=== PATIENT | male | born 1960 | race Caucasian/White ===

== ENCOUNTER 2018-01-20 16:14 | Inpatient (IN) | payer MEDICAID ==
--- NOTE | 2018-01-20 18:00 | ED Physician Chart ---
ED Chief Complaint/HPI - Patient Information Date Seen:: 01/20/18 Time Seen:: 17:08 Chief Complaint:: left leg and foot pain History of Present Illness:: THIS IS A 57 YO MALE WHO IS CONCERNED ABOUT HIS LEFT LOWER LEG AND FOOT PAIN. HE HAS HAD A PE AND A DVT IN THE LEFT LOWER LEG. THE PATIENT DENIES HEART PAIN BUT DENIES ABDOMINAL PAIN. HE HAS HAD BACK PAIN ALSO FOR SEVERAL DAYS. Allergies:: Allergies Allergy/AdvReac Type Severity Reaction Status Date / Time No Known Allergies Allergy Verified 01/20/18 16:57 Vitals:: Vital Signs - 8 hr 01/20/18 16:58 Temp 98.6 F HR 63 RR 16 BP 161/90 O2 Sat % 99 ED Review of Systems - Review of Systems General/Constitutional: No fever, No chills, No weight loss, No weakness, No diaphoresis, No edema, No loss of appetite Skin: No skin lesions, No rash, No bruising Head: No headache, No light-headedness Eyes: No loss of vision, No pain, No diplopia ENT: No earache, No nasal drainage, No sore throat, No tinnitus Neck: No neck pain, No swelling, No thyromegaly, No stiffness, No mass noted Cardio Vascular: No chest pain, No palpitations, No PND, No orthopnea, No edema Pulmonary: No SOB, No cough, No sputum, No wheezing GI: No nausea, No vomiting, No diarrhea, No pain, No melena, No hematochezia, No constipation, No hematemesis G/U: No dysuria, No frequency, No hematuria Musculoskeletal: No bone or joint pain, No back pain, No muscle pain, Other ( left lower leg swelling but not tender.) Endocrine: No polyuria, No polydipsia Psychiatric: No prior psych history, No depression, No anxiety, No suicidal ideation Hematopoietic: No bruising, No lymphadenopathy Allergic/Immuno: No urticaria, No angioedema Neurological: No syncope, No focal symptoms, No weakness, No paresthesia, No headache, No seizure, No dizziness, No confusion, No vertigo ED Past Medical History - Past Medical History Obtainable: Yes Past Medical History: HTN, DM, DVT/PE Family History: Diabetes Melitus (father) Social History: Non Smoker, No Alcohol, No Drug Use, Single Family Medical History - Family Member Mother History Unknown: Yes ED Physical Exam - Physical Examination General/Constitutional: Awake, Well-developed, well-nourished, Alert, No distress, GCS 15, Non-toxic appearing, Ambulatory Head: Atraumatic Eyes: Lids, conjuctiva normal, PERRL, EOMI Skin: Nl inspection, No rash, No skin lesions, No ecchymosis, Well hydrated, No lymphadenopathy ENMT: External ears, nose nl, Nasal exam nl, Lips, teeth, gums nl Neck: Nontender, Full ROM w/o pain, No JVD, No nuchal rigidity, No bruit, No mass, No stridor Respiratory: Nl effort/Exclusion, Clear to Auscultation, No Wheeze/Rhonchi/Rales Cardio Vascular: RRR, No murmur, gallop, rubs, NL S1 S2 GI: No tenderness/rebounding/guarding, No organomegaly, No hernia, Normal BS's, Nondistended, No mass/bruits, No McBurney tenderness : No CVA tenderness Extremities: No tenderness or effusion (left lower extremity), Full ROM, normal strength in all extremities, No edema, Normal digits & nails Neuro/Psych: Alert/oriented, DTR's symmetric, Normal sensory exam, Normal motor strength, Judgement/insight normal, Mood normal, Normal gait, No focal deficits Misc: Normal back, No paraspinal tenderness ED Labs/Radiology/EKG Results - Lab Results Results: Laboratory Results - last 24 hr 01/20/18 01/20/18 01/20/18 18:15 18:15 18:15 WBC RBC Hgb Hct MCV MCH MCHC Differential RDW Plt Count MPV Neutrophils % Lymphocytes % Monocytes % Eosinophils % Basophils % PT 11.3 INR 1.09 PTT (Actin FS) 23.8 L Sodium Potassium Chloride Carbon Dioxide Anion Gap BUN Creatinine Est GFR ( Amer) Est GFR (Non-Af Amer) BUN/Creatinine Ratio Glucose Calcium Total Bilirubin AST ALT Alkaline Phosphatase Troponin I < 0.01 L Total Protein Albumin Globulin Albumin/Globulin Ratio TSH 0.49 01/20/18 01/20/18 18:15 18:15 WBC 5.5 RBC 4.63 Hgb 14.6 Hct 43.3 MCV 93.5 MCH 31.5 H MCHC Differential 33.7 RDW 13.2 Plt Count 276 MPV 6.7 Neutrophils % 56.8 Lymphocytes % 31.6 Monocytes % 8.8 Eosinophils % 2.3 Basophils % 0.5 PT INR PTT (Actin FS) Sodium 137 Potassium 3.3 L Chloride 99 Carbon Dioxide 29.3 Anion Gap 12.0 BUN 15 Creatinine 0.8 Est GFR ( Amer) > 60.0 Est GFR (Non-Af Amer) > 60.0 BUN/Creatinine Ratio 18.8 Glucose 176 H Calcium 9.9 Total Bilirubin 0.5 AST 22 ALT 35 Alkaline Phosphatase 70 Troponin I Total Protein 7.2 Albumin 4.0 L Globulin 3.2 Albumin/Globulin Ratio 1.3 TSH - Radiology Results Results: CHEST X-RAY = NAD Comments:: CTA OF THE CHEST = NEGATIVE FOR PE = OLD RIGHT RIB FX = OLD RIGHT RIB FX - EKG Interpretations EKG Time:: 17:59 Rate & Rhythm: rate = 54, sinus ian [place]: left axis ED Assessment - Assessment General Assessment: LEFT DEEP VEIN THROMBOSIS ED Septic Shock - . Is Septic Shock (SBP<90, OR Lactate>4 mmol\L) present?: No - <6hrs of presentation: Vital Signs: Vital Signs - 8 hr 01/20/18 16:58 Temp 98.6 F HR 63 RR 16 BP 161/90 O2 Sat % 99 ED Reassessment (Disposition) - Reassessment Reassessment Condition:: Unchanged - Diagnosis Diagnosis:: LEFT LOWER LEG DEEP VEIN THROMBOSIS DIABETES MELLITUS HYPERTENSION - Patient Disposition Discharge/Transfer:: Acute Care w/in this hosp Admitting Medical Physician:: Luz Maria Patel Condition at Disposition:: Unchanged
[2018-01-20] MEDS ORDERED: Sodium Chloride 0.45% 1,000 ML IV ONE (18:03)
[2018-01-20 18:22] LABS: % BASOPHILS 0.5 % (0.0-2.0); % EOSINOPHILS 2.3 % (0.0-5.0); % LYMPHOCYTES 31.6 % (20.0-50.0); % MONOCYTES 8.8 % (2.0-10.0); % NEUTROPHILS 56.8 % (40.0-80.0); EOSINOPHILE ABSOLUTE 0.1 Th/cmm (0.1-0.4); HEMATOCRIT 43.3 % (41.0-60); HEMOGLOBIN 14.6 gm/dL (12-16); LYMPHOCYTE ABSOLUTE 1.7 Th/cmm (1.5-3.0); MEAN CELL VOLUME 93.5 fl (80-99); MEAN CORPUSCULAR HEMOGLOBIN 31.5 pg (26.0-30.0); MEAN CORPUSCULAR HGB CONC 33.7 pg (28.0-36.0); MEAN PLATELET VOLUME 6.7 fl; MONOCYTE ABSOLUTE 0.5 Th/cmm (0.3-1.0); NEUTROPHILE ABSOLUTE 3.2 Th/cmm (1.8-8.0); PLATELET COUNT 276 Th/cmm (150-400); RED BLOOD COUNT 4.63 Mil/cmm (4.30-5.70); RED CELL DISTRIBUTION WIDTH 13.2 % (11.5-20.0); WHITE BLOOD COUNT 5.5 Th/cmm (4.8-10.8)
[2018-01-20 18:34] LABS: INR 1.09 (0.5-1.4); PROTHROMBIN TIME (TEST) 11.3 SECONDS (9.5-11.5)
[2018-01-20 18:38] LABS: ALB/GLOB RATIO 1.3 (1.0-1.8); ALKALINE PHOSPHATASE 70 U/L (34-104); BILIRUBIN,TOTAL 0.5 mg/dL (0.3-1.0); BUN - UREA NITROGEN 15 mg/dL (7-25); CALCIUM SERUM 9.9 mg/dL (8.6-10.3); CARBON DIOXIDE 29.3 mEq/L (21.0-31.0); CHLORIDE 99 mEq/L (98-107); CREATININE - SERUM 0.8 mg/dL (0.7-1.3); GFR AFRICAN-AMERICAN > 60.0 ml/min (>90); GFR NON AFRICAN-AMERICAN > 60.0 ml/min; GLUCOSE 176 mg/dL (70-105); POTASSIUM SERUM 3.3 mEq/L (3.5-5.1); SGOT 22 U/L (13-39); SGPT/ALT 35 U/L (7-52); SODIUM SERUM 137 mEq/L (136-145); TOTAL PROTEIN,SERUM 7.2 gm/dL (6.0-8.3)
[2018-01-20] MEDS ORDERED: Potassium Chloride Elixir 20 mEq /15 mL UDC PO ONE (18:45)
[2018-01-20] MEDS ORDERED: Potassium Chloride Elixir 20 mEq /15 mL UDC ONE (18:53)
[2018-01-20] MEDS ORDERED: IOHEXOL 350mgI/mL 150mL IV ONE (19:53)
[2018-01-20 23:40] VITALS: BP 107/58
[2018-01-21 00:52] LABS: URINE SOURCE CLEAN C
[2018-01-21 00:57] LABS: URINE BILIRUBIN NEGATIVE (NEGATIVE); URINE BLOOD NEGATIVE (NEGATIVE); URINE GLUCOSE (UA) NEGATIVE (NEGATIVE); URINE KETONE NEGATIVE (NEGATIVE); URINE LEUKOCYTE ESTERASE NEGATIVE (NEGATIVE); URINE NITRATE NEGATIVE (NEGATIVE); URINE PH 6.5 (4.6 - 8.0); URINE PROTEIN NEGATIVE (NEGATIVE)
[2018-01-21 01:07] LABS: URINE CLARITY CLEAR (CLEAR); URINE COLOR YELLOW; URINE MICROSCOPIC INDICATED? NO
[2018-01-21 06:08] LABS: % BASOPHILS 0.5 % (0.0-2.0); % EOSINOPHILS 2.4 % (0.0-5.0); % LYMPHOCYTES 34.4 % (20.0-50.0); % MONOCYTES 7.6 % (2.0-10.0); % NEUTROPHILS 55.1 % (40.0-80.0); EOSINOPHILE ABSOLUTE 0.1 Th/cmm (0.1-0.4); HEMOGLOBIN 14.2 gm/dL (12-16); MEAN CELL VOLUME 95.5 fl (80-99); MEAN CORPUSCULAR HEMOGLOBIN 30.7 pg (26.0-30.0); MEAN CORPUSCULAR HGB CONC 32.2 pg (28.0-36.0); MEAN PLATELET VOLUME 7.1 fl; MONOCYTE ABSOLUTE 0.4 Th/cmm (0.3-1.0); NEUTROPHILE ABSOLUTE 3.3 Th/cmm (1.8-8.0); PLATELET COUNT 225 Th/cmm (150-400); RED CELL DISTRIBUTION WIDTH 12.5 % (11.5-20.0); WHITE BLOOD COUNT 5.8 Th/cmm (4.8-10.8)
[2018-01-21 06:27] LABS: ALB/GLOB RATIO 1.2 (1.0-1.8); ALBUMIN 3.6 gm/dL (4.2-5.5); ALKALINE PHOSPHATASE 70 U/L (34-104); ANION GAP 11.8 (7.0-16.0); BILIRUBIN,TOTAL 0.4 mg/dL (0.3-1.0); BUN - UREA NITROGEN 12 mg/dL (7-25); CALCIUM SERUM 9.4 mg/dL (8.6-10.3); CARBON DIOXIDE 26.5 mEq/L (21.0-31.0); CHLORIDE 102 mEq/L (98-107); CHOLESTEROL 150 mg/dL (<200); CREATININE - SERUM 0.8 mg/dL (0.7-1.3); GFR AFRICAN-AMERICAN > 60.0 ml/min (>90); GFR NON AFRICAN-AMERICAN > 60.0 ml/min; GLUCOSE 211 mg/dL (70-105); HDL -HIGH DENSITY LIPOPROTEIN 39 mg/dL (23-92); MAGNESIUM 1.7 mg/dL (1.9-2.7); POTASSIUM SERUM 3.3 mEq/L (3.5-5.1); SGOT 22 U/L (13-39); SGPT/ALT 33 U/L (7-52); SODIUM SERUM 137 mEq/L (136-145); TOTAL PROTEIN,SERUM 6.7 gm/dL (6.0-8.3); TRIGLYCERIDES 115 mg/dL (<150)
[2018-01-21] MEDS: INSULIN ASPART SLIDING SCALE 100 UNITS/ML UNIT SUBQ SCH ×4 (08:07→21:02)
--- NOTE | 2018-01-21 10:02 | Diagnostic Imaging Report ---
CHEST X-RAY: AP view INDICATION: pain COMPARISON: None FINDINGS: Mild chronic lung changes are noted. There is no focal consolidation or pleural effusions The heart is normal in size. No pneumothorax. Multiple old right rib fractures are noted.. IMPRESSION: No focal consolidation or evidence of pneumothorax. Multiple old right rib fractures.
--- NOTE | 2018-01-21 10:05 | Diagnostic Imaging Report ---
Bilateral lower extremity DVT study HISTORY: Left leg pain, rule out DVT COMPARISON: None Technique: Longitudinal and transverse sonographic images of the bilateral lower extremity veins were obtained with doppler analysis. FINDINGS: There is thrombus seen within the left popliteal vein. The remaining veins of the bilateral lower extremity are patent demonstrate compressibility and augmentation with no evidence of DVT formation. IMPRESSION: Findings consistent with DVT within the left popliteal vein. Clinical correlation follow-up is recommended. Results were relayed to the referring team following the exam.
--- NOTE | 2018-01-21 10:49 | Diagnostic Imaging Report ---
CT Chest pulmonary embolus study Indication: Shortness of breath Comparison: Chest x-ray the same day, Technique: Axial images were obtained from the base of the neck to the upper abdomen, following administration of IV contrast, PE protocol. Multiplanar reconstructions were made. total DLP: 323, CTDI7.9 FINDINGS: There is no evidence of mediastinal lymphadenopathy. No evidence of an aortic aneurysm. The heart size is normal. No pericardial effusion identified. Minimal atherosclerotic vascular disease is noted. Evaluation of the pulmonary arterial vasculature demonstrates no evidence of pulmonary embolus. Evaluation of the pulmonary parenchyma demonstrates hypoventilatory and atelectatic lung changes. No focal consolidation, pleural effusions, or pneumothorax. There are multiple old right rib fractures. Degenerative changes of the spine are noted. Multiple gallstones are suspected. IMPRESSION: No evidence of pulmonary embolus. No evidence of an aortic aneurysm Atelectatic lung changes with no focal consolidation identified. Multiple old right rib fractures. Suspect multiple small gallstones. Ultrasound would further clarify.
[2018-01-21] MEDS ORDERED: Mag Sulfate 2gm/50mL Premix 2 GM/50 ML BAG IV ONE (14:07)
--- NOTE | 2018-01-21 16:12 | History & Physical ---
ADMIT DATE: 01/21/2018 CHIEF COMPLAINT: The patient came in because of purplish discoloration of his foot. HISTORY OF PRESENT ILLNESS: This is a 57-year-old male with past medical history of left leg DVT, who came in because of purplish discoloration of left foot. A few hours prior to admission, the patient noted purplish discoloration of lateral left foot. He was concerned about recurrent DVT, which he had about 9 years ago. He then proceeded to the Emergency Room. Left leg duplex scan was positive for DVT involving the left popliteal vein. This was followed by a CTA of the chest, which was negative for PE. He was started on Xarelto. He had no edema or trauma to the area. PAST MEDICAL HISTORY: 1. Type 2 diabetes mellitus. 2. Essential hypertension. CURRENT MEDICATIONS: He is currently on metformin, atenolol, glipizide, hydrochlorothiazide, amlodipine, Xarelto. ALLERGIES: No known drug allergies. SOCIAL HISTORY: He still smokes approximately a pack which he consumes in about 3 days. No alcohol abuse. He is unemployed. FAMILY HISTORY: Father had a history of diabetes while mother had a history of leukemia. REVIEW OF SYSTEMS: CONSTITUTIONAL: Denied any weakness, appetite had been fair, no fever or chills. HEENT: No mention of headaches, no dizziness. CARDIORESPIRATORY: No shortness of breath, chest pain, palpitations, diaphoresis, or cough. GASTROINTESTINAL: No nausea and vomiting, abdominal pain or cramping, hematemesis, melena, hematochezia, no diarrhea. ENDOCRINE: He has a history of diabetes, no thyroid abnormalities, no dyslipidemia. MUSCULOSKELETAL: Multiple joint arthralgias. GENITOURINARY: No history of kidney failure, no dysuria, no hematuria. HEMATOLOGIC: No history of anemia. NEUROPSYCHIATRIC: No syncopal episode or seizure activity. PHYSICAL EXAMINATION: GENERAL: The patient is alert, verbal, comfortable. VITAL SIGNS: Blood pressure is 114/52, pulse 56, temperature 97.4 degrees. SKIN: Good turgor, warm, no rash, no jaundice appreciated. HEENT: Head normocephalic, atraumatic. Eyes: Extraocular muscles are intact. Pupils equal, round, reactive to light and accommodates. Anicteric sclerae. [place] conjunctivae. Nose, midline nasal septum. Mouth, moist mucosa, adequate dentition. NECK: Supple, no adenopathy, no thyromegaly, no bruits. Trachea palpated in the midline. CHEST AND CARDIOVASCULAR: S1, S2. No rub, murmur, no gallop appreciated. Point of maximal impulse fifth intercostal space, left midclavicular line. No abdominal or femoral bruits appreciated. LUNGS: Equal expansion. No use of accessory muscles. No supraclavicular retractions. Decreased breath sounds, clear to auscultation without any wheeze. ABDOMEN: Flat, soft. Positive for bowel sounds. No bruits either diastolic or systolic. RECTAL: Refused. GENITOURINARY: Also refused. MUSCULOSKELETAL: No effusions present in his joints with adequate range of motion. EXTREMITIES: No evidence of any edema, cyanosis or clubbing. He has no tenderness on palpation of bilateral lower extremities. He has some purplish discoloration involving the lateral aspect of his left foot. He has a palpable femoral, popliteal and dorsalis pedis pulses. NEUROLOGIC: The patient is alert, verbal, motor is 5/5. Cranial nerves 3-12 intact. Sensory intact. LABORATORY DATA AND STUDIES: Did reveal white count 5.8, hemoglobin 14.2, hematocrit 44, platelets 225, polys 55.1%. Sodium 137, potassium 3.3, chloride 102, bicarbonate 26, BUN 12, creatinine 0.8, glucose 211, calcium 9.4, magnesium 1.7. Albumin 3.6. TSH 1. IMPRESSION: 1. Recurrent left leg deep venous thrombosis, possibly due to smoking. 2. Type 2 diabetes mellitus. 3. Essential hypertension. 4. Hypokalemia secondary to hypomagnesemia as well as hydrochlorothiazide. 5. Hypomagnesemia secondary to hydrochlorothiazide. PLAN: 1. Start Xarelto twice a day. 2. Continue to monitor the patient's respiratory status. 3. Encourage the patient to ambulate. 4. Encourage the patient also to stop smoking or taper down his cigarettes. JOB# [id number]
[2018-01-22 05:29] LABS: ANION GAP 11.7 (7.0-16.0); BUN - UREA NITROGEN 16 mg/dL (7-25); CALCIUM SERUM 9.7 mg/dL (8.6-10.3); CARBON DIOXIDE 29.8 mEq/L (21.0-31.0); CHLORIDE 100 mEq/L (98-107); CREATININE - SERUM 0.8 mg/dL (0.7-1.3); GFR AFRICAN-AMERICAN > 60.0 ml/min (>90); GFR NON AFRICAN-AMERICAN > 60.0 ml/min; GLUCOSE 222 mg/dL (70-105); MAGNESIUM 1.9 mg/dL (1.9-2.7); POTASSIUM SERUM 3.5 mEq/L (3.5-5.1); SODIUM SERUM 138 mEq/L (136-145)
[2018-01-22] MEDS: INSULIN ASPART SLIDING SCALE 100 UNITS/ML UNIT SUBQ SCH ×2 (09:16→12:14)
--- NOTE | 2018-01-22 23:03 | Discharge Summary ---
DATE OF DISCHARGE: 01/21/2018 ADMITTING DIAGNOSES: 1. Recurrent left lower extremity DVT. 2. Previous history of deep venous thrombosis with PE (2 years ago). 3. Mild hypokalemia. SECONDARY DIAGNOSES: 1. History of type 2 diabetes. 2. History of essential hypertension. 3. History of nicotine dependence. DISCHARGE DIAGNOSES: 1. Left lower extremity DVT -- clinically stable. 2. Hypokalemia, repleted. CONSULTANTS: No consultants were used during this admission. MAJOR PROCEDURES: Chest, abdomen, and pelvic CT angiogram: No evidence of PE, no evidence of aortic aneurysm. Atelectatic lung changes with no focal consolidation was noted, multiple old rib fractures. Suspected multiple small gallstones. Lower extremity venous ultrasound: Findings consistent with DVT in the left popliteal vein. BRIEF HOSPITAL COURSE: The patient is a 57-year-old gentleman with the above-mentioned past medical history who presented to the ER with a few day history of left lower extremity discoloration and pain. The patient stated that he had a trip to [place] about 2 weeks prior to admission, and he thinks that it was after that he started to develop the pain and some swelling. He stated that he had a DVT diagnosed as well as a PE about 2 years ago and was treated with Coumadin for a few months. The patient was admitted to the [facility] and was placed on Xarelto and supportive care including pain management and he was kept on his other medications. By the hospital day #2, his pain and swelling had improved and he remained asymptomatic with normal vital signs. CONDITION ON DISCHARGE: Stable. MEDICATIONS ON DISCHARGE: Xarelto 15 mg b.i.d. with meals, amlodipine 10 mg every day, atenolol 25 every day, glipizide 5 daily with meals, hydrochlorothiazide 12.5 every day, Glucophage 1000 mg in the morning and 500 mg at night. CONDITION ON DISCHARGE: Stable. DISPOSITION: The patient was discharged home and was instructed to follow up with his primary care doctor within 2 or 3 days. I also instructed him in the future when taking long trips given that he is susceptible for DVTs to frequently stretch and move his lower extremities. JOB# [id number] [facility]
== END 2018-01-22 14:00 | disposition home or self-care (01) | DRG 197 ==
LOC: ER 16:14 → TELE 22:02
PROVIDERS: ADMIT Internal Medicine; ATTEND Internal Medicine
DX: I82.432 Acute embolism and thrombosis of left popliteal vein (principal); E11.65 Type 2 diabetes mellitus with hyperglycemia; K80.10 Calculus of gallbladder with chronic cholecystitis without obstruction; E83.42 Hypomagnesemia; I10 Essential (primary) hypertension; F17.210 Nicotine dependence, cigarettes, uncomplicated; E87.6 Hypokalemia; Z86.711 Personal history of pulmonary embolism; Z86.718 Personal history of other venous thrombosis and embolism; Z83.3 Family history of diabetes mellitus; Z88.3 Allergy status to other anti-infective agents
CPT/HCPCS: 36415-UA; 71045-TC; 71275-TC; 80048-TC; 80053-TC; 80061-TC; 81003-TC; 82948-90; 83036-90; 83735-TC; 84443-TC; 84484-TC; 85025-TC; 85610-TC; 85730-TC; 93005; 93970-TC-50; J1815; J3475; J7040; Z7610

== ENCOUNTER 2018-05-29 17:25 | Emergency (ER) | payer MEDICAID ==
--- NOTE | 2018-05-29 17:55 | ED Physician Chart ---
ED Chief Complaint/HPI - Patient Information Date Seen:: 05/29/18 Time Seen:: 17:45 Chief Complaint:: Penile Discharge History of Present Illness:: onset x 2 days of penile redness and discharge; pt denies trauma, pain, LOC, ALOC, AMS, H/As, neck pain, C/P, SOB, Abd. Pain, A/N/V/D/C, fever, chills, bleeding, or urinary s/s; pt's last tetanus shot: < 5 years; UTD; pt is eating and is urinating well; pt last urinated 1/2 hour [employer] Allergies:: Allergies Allergy/AdvReac Type Severity Reaction Status Date / Time No Known Allergies Allergy Verified 01/20/18 16:57 Historian:: Patient Review:: Nurse's Note Reviewed ED Review of Systems - Review of Systems General/Constitutional: No fever, No chills, No weight loss, No weakness, No diaphoresis, No edema, No loss of appetite Skin: No skin lesions, No rash, No bruising Head: No headache, No light-headedness Eyes: No loss of vision, No pain, No diplopia ENT: No earache, No nasal drainage, No sore throat, No tinnitus Neck: No neck pain, No swelling, No thyromegaly, No stiffness, No mass noted Cardio Vascular: No chest pain, No palpitations, No PND, No orthopnea, No edema Pulmonary: No SOB, No cough, No sputum, No wheezing GI: No nausea, No vomiting, No diarrhea, No pain, No melena, No hematochezia, No constipation, No hematemesis G/U: No dysuria, No frequency, No hematuria, No nacturia Musculoskeletal: No bone or joint pain, No back pain, No muscle pain Endocrine: No polyuria, No polydipsia Psychiatric: No prior psych history, No depression, No anxiety, No suicidal ideation, No homicidal ideation, No auditory hallucination, No visual hallucination Hematopoietic: No bruising, No lymphadenopathy Allergic/Immuno: No urticaria, No angioedema Neurological: No syncope, No focal symptoms, No weakness, No paresthesia, No headache, No seizure, No dizziness, No confusion, No vertigo ED Past Medical History - Past Medical History Obtainable: Yes Past Medical History: HTN, DM, DVT/PE, Other (Hepatitic C) Family History: HTN Social History: Non Smoker, No Alcohol, No Drug Use, Surgical History: None Psychiatricy History: None Medication: Reviewed Family Medical History - Family Member Mother History Unknown: Yes Hx Family Diabetes: Yes ED Physical Exam - Physical Examination General/Constitutional: Awake, Well-developed, well-nourished, Alert, No distress, GCS 15, Non-toxic appearing, Ambulatory Head: Atraumatic Eyes: Lids, conjuctiva normal, PERRL, EOMI Skin: Nl inspection, No rash, No skin lesions, No ecchymosis, Well hydrated, No lymphadenopathy ENMT: External ears, nose nl, TM canals nl, Nasal exam nl, Lips, teeth, gums nl , Oropharynx nl, Tonsils nl Neck: Nontender, Full ROM w/o pain, No JVD, No nuchal rigidity, No bruit, No mass, No stridor Other Neck comments:: supple; no meningeal signs; no cervical tenderness; no bruits Respiratory: Nl effort/Exclusion, Clear to Auscultation, No Wheeze/Rhonchi/Rales Cardio Vascular: RRR, No murmur, gallop, rubs, NL S1 S2, Carotid/Femoral/Distal pulses equal bilaterally GI: No tenderness/rebounding/guarding, No organomegaly, No hernia, Normal BS's, Nondistended, No mass/bruits, No McBurney tenderness, Rectum exam nl Other GI comments:: no pulsatile masses; good BS : No CVA tenderness Other comments:: + Penile/Urethral clear Discharge; + Localized Cellulitis of the distal shaft of the Penis; good motor and sensory functions; good NV functions Extremities: No tenderness or effusion, Full ROM, normal strength in all extremities, No edema, Normal digits & nails Neuro/Psych: Alert/oriented, DTR's symmetric, Normal sensory exam, Normal motor strength, Judgement/insight normal, Mood normal, Normal gait, No focal deficits Other Neuro/Psych comments:: no focal signs Misc: Normal back, No paraspinal tenderness ED Labs/Radiology/EKG Results - Lab Results Comments:: deferred by pt; pt declined Urethral Discharge for GC, Chlamydia, and C and S, and U/A ED Septic Shock - . Is Septic Shock (SBP<90, OR Lactate>4 mmol\L) present?: No ED Reassessment (Disposition) - Reassessment Reassessment:: pt is asymptomatic upon discharge Reassessment Condition:: Improved - Diagnosis Diagnosis:: Urethral Discharge; Balanitis; Penile Cellulitis; Urethritis; DM; HTN; PVD - Aftercare/Follow up Instructions Aftercare/Follow-Up Instructions:: Counseled pt regarding lab results/diagnosis & need follow up, Refer to Discharge Instructions, Counseled pt & family regarding lab results/diagnosis & need follow up Medication Prescribed:: Rx: Keflex 500mg po qid x 10 days; Doxycycline 100mg po bid x 10 days; take all medications as prescribed - Patient Disposition Discharge/Transfer:: Home Condition at Disposition:: Stable, Improved (RTER prn if existing s/s reoccur and/or get worse and/or any other new s/s occur; ACIs given for all above Dx; Refer to Urologist/ID Specialist/Chlorine Plant Operator LUIS E; F/U with PMD in one day or prn ; RTER prn if concerned)
== END 2018-05-29 19:30 | disposition home or self-care (01) ==
LOC: ER 17:25
DX: N48.1 Balanitis (principal); N34.2 Other urethritis; I10 Essential (primary) hypertension; E11.9 Type 2 diabetes mellitus without complications; I73.9 Peripheral vascular disease, unspecified
CPT/HCPCS: 99283; 96372; J0696; Z7502